=== PATIENT | male | born 1955 | race Caucasian/White ===

== ENCOUNTER 2023-09-27 10:57 | Outpatient (CLI) | payer OTHER, SELFPAY ==
--- NOTE | ~2023-09-27 | MR_ITS ---
EXAMINATION: MR IAC wo/w con DATE: 09/27/2023 11:52 INDICATION: Hearing loss. TECHNIQUE: Magnetic resonance imaging (MRI) of the brain, brainstem, and internal auditory canals was performed without and with 20 mL MultiHance intravenous contrast. COMPARISON: None. FINDINGS: There is an old infarct in left thalamus. There are scattered areas of nonspecific increase d T2-weighted signal intensity in the cerebral white matter. There is no intracranial hemorrhage, acu te infarction, or abnormal intracranial mass lesion. The ventricles are normal in size. The internal auditory canals and inner ear ears and tympanic cavities are normal. The mastoid air cells are normal . The orbits are normal. There is mild mucosal thickening in the ethmoid sinuses. IMPRESSION: 1. 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 2. Moderate nonspecific cerebral white matter disease, which likely represents chronic small vessel i schemic disease. Reviewed, dictated and finalized at location E. IMPRESSION: 1. 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 2. Moderate nonspecific cerebral white matter disease, which likely represents chronic small vessel ischemic disease.
== END 2023-09-27 10:58 ==
LOC: MICIMG 10:59
DX: H91.22 Sudden idiopathic hearing loss, left ear (principal); R90.82 White matter disease, unspecified
CPT/HCPCS: 70553; A9577